=== PATIENT | female | born 1970 | race Hispanic/Latino ===

== ENCOUNTER 2019-12-26 04:54 | Inpatient (IN) | payer OTHER ==
[~2019-12-26] VITALS: Ht 152.4 cm; Wt 71.2 kg
[2019-12-26 05:05] LABS: ABG BASE EXCESS -2.9 mmol/L (-2.0-3.0); ABG HCO3 23.3 mmol/L (21.0-28.0); ABG OXYGEN SATURATION 98.5 % (95.0-99.0); ABG PCO2 46 mmHg (32-45)
[2019-12-26] MEDS ORDERED: ALBUTEROL INHALER 90MCG/INH IH ONE (05:21)
[2019-12-26] MEDS ORDERED: METHYLPREDNISOLONE SOD SUCC 125MG/2ML VIAL ONE (05:21)
[2019-12-26 05:54] LABS: BASOPHILS % (AUTO) 0.9 % (0.0-5.0); EOSINOPHILS % (AUTO) 5.8 % (0.0-8.0); HEMATOCRIT 37.6 % (36-48); LYMPHOCYTES % (AUTO) 19.5 % (21.0-51.0); MEAN CORPUSCULAR HEMOGLOBIN 21.7 pg (27.0-33.0); MEAN CORPUSCULAR HGB CONC 30.1 g/dL (32.0-36.0); MEAN CORPUSCULAR VOLUME 72.3 fL (79-99); MONOCYTES % (AUTO) 6.8 % (3.0-13.0); NEUTROPHILS % (AUTO) 66.8 % (40.0-77.0); PLATELET COUNT (AUTO) 375 K/uL (130-400); RED CELL DISTRIBUTION WIDTH 17.9 % (11.0-15.5); WHITE BLOOD COUNT (AUTO) 8.6 K/uL (4.8-10.8)
[2019-12-26 06:12] LABS: ALBUMIN 4.1 g/dL (3.5-5.0); BILIRUBIN,TOTAL 0.3 mg/dL (0.2-1.0); CREATININE 0.9 mg/dL (0.5-1.5); POTASSIUM 3.8 mmol/L (3.5-5.1); TOTAL PROTEIN, SERUM 8.7 g/dL (6.0-8.3)
[2019-12-26 06:30] LABS: INR 0.97 (0.85-1.15); PARTIAL THROMBOPLASTIN TIME 28.3 SEC (26.3-35.5); PROTHROMBIN TIME 10.5 SEC (9.6-11.6)
[2019-12-26 06:46] LABS: APPEARANCE,URINE Clear (CLEAR); BILIRUBIN,URINE Negative (NEGATIVE); COLOR,URINE Yellow (YELLOW); GLUCOSE, URINE (UA) Negative (NEGATIVE); KETONES,URINE Negative (NEGATIVE); LEUKOCYTE ESTERASE ,URINE Small (NEGATIVE); NITRATE,URINE Negative (NEGATIVE); OCCULT BLOOD,URINE Negative (NEGATIVE); PH,URINE 5.5 (5.0-8.0); PROTEIN,URINE Negative (NEGATIVE); UROBILINOGEN,URINE 0.2 mg/dL (0.2-1.0)
[2019-12-26 06:51] LABS: HCG,QUAL RESULT NEGATIVE (NEGATIVE)
[2019-12-26 07:12] LABS: BACTERIA,URINE None Seen /HPF (None Seen); RBC,URINE 0-1 /HPF (0-1); WBC,URINE 0-1 /HPF (0-1)
[2019-12-26] MEDS ORDERED: AZITHROMYCIN 500MG+NS 250ML 250 ML IV ONE (07:25)
[2019-12-26] MEDS ORDERED: ALBUTEROL SULFATE/IPRATROPIUM 103/18 MCG/PUFF 14.7 GM INHR IH SCH (07:30)
[2019-12-26] MEDS ORDERED: ENOXAPARIN SODIUM 40 MG/0.4 ML SYRINGE SQ ONE (08:25)
[2019-12-26] MEDS ORDERED: FAMOTIDINE/PF 20 MG/2 ML VIAL IV ONE (08:26)
[2019-12-26 08:49] LABS: LACTATE DEHYDROGENASE 328 U/L (81-234)
[2019-12-26] MEDS ORDERED: METHYLPREDNISOLONE SOD SUCC 40MG/ML 1ML ONE ×2 (08:55→15:22)
[2019-12-26] MEDS: ENOXAPARIN SODIUM 40 MG/0.4 ML SYRINGE SQ SCH (09:00)
[2019-12-26] MEDS ORDERED: ACETAMINOPHEN 325 MG TAB PO PRN (14:45)
[2019-12-26] MEDS ORDERED: ACETAMINOPHEN 325 MG TAB ONE (15:20)
[2019-12-26 17:00] VITALS: BP 130/78
--- NOTE | 2019-12-26 17:00 | NUR ---
ADMISSION RECEIVED PT FROM ER, A&OX3, CALM COOPERATIVE AND DOES NOT APPEAR TO BE IN ANY DISTRESS NOR ANY NEURO DEFICITS PRESENT, PT IS ABLE TO AMBULATE FROM GURNEY TO BED BUT DID HAVE SOME DYSPNEA ON EXERTION THAT RESOLVES AFTER SITTING IN BED, PT DOES HAVE WHEEZING PRESENT, GAIT STEADY AND STRONG WITH STAND BY ASSIST. O2 EXTENSION TUBING PROVIDED, INFORMED PT TO MINIMIZE ACTIVITY TO REDUCE EXACERBATION OF ASTHMA. CALL LIGHT WITHIN REACH.
[2019-12-26] MEDS: TRAMADOL HCL 50 MG TABLET PO PRN (19:55)
[2019-12-26 20:00] VITALS: BP 112/67
[2019-12-26] MEDS: CEFTRIAXONE SODIUM 1 GM IVP SCH (20:56)
[2019-12-26] MEDS: FAMOTIDINE/PF 20 MG/2 ML VIAL IV SCH (20:56)
[2019-12-26] MEDS: ALBUTEROL INHALER 90MCG/INH IH SCH (20:58)
[2019-12-26] MEDS: METHYLPREDNISOLONE SOD SUCC 125MG/2ML VIAL IVP SCH (21:02)
[2019-12-27] VITALS: BP 134/90
[2019-12-27] MEDS: ALBUTEROL INHALER 90MCG/INH IH SCH ×4 (00:16→12:24)
[2019-12-27 04:00] VITALS: BP 129/82
[2019-12-27] MEDS: METHYLPREDNISOLONE SOD SUCC 125MG/2ML VIAL IVP SCH ×2 (04:21→09:26)
[2019-12-27] MEDS: TRAMADOL HCL 50 MG TABLET PO PRN (04:22)
[2019-12-27 07:00] VITALS: BP 128/73
[2019-12-27] MEDS: CEFTRIAXONE SODIUM 1 GM IVP SCH (09:27)
[2019-12-27] MEDS: FAMOTIDINE/PF 20 MG/2 ML VIAL IV SCH (09:28)
[2019-12-27] MEDS ORDERED: AZITHROMYCIN 500MG+NS 250ML 250 ML IV SCH (10:45)
[2019-12-27 11:00] VITALS: BP 124/78
[2019-12-27] MEDS: ENOXAPARIN SODIUM 40 MG/0.4 ML SYRINGE SQ SCH (11:35)
[2019-12-27 12:52] LABS: RAPID PLASMA REAGIN NONREACTIVE (NONREACTIVE)
[2019-12-27] MEDS ORDERED: DOXY100C2 PO (13:56)
[2019-12-27] MEDS ORDERED: PRED20TA3 PO (13:56)
--- NOTE | 2019-12-27 16:00 | NUR ---
DC INSTRUCTIONS DC HOME INSTRUCTIONS GIVEN TO PT, ACKNOWLEDGED ALL INFORMATION, ALL QUESTIONS ANSWERED. AWARE AND ACKNOWLEDGED PRESCRIPTIONS WERE SENT TO PHARMACY, AWARE NEEDS PCP F/U IN 3-5 DAYS. PT AWAKE, ALERT, AND ORIENTED. PT MADE AWARE TO RETURN TO ER IF NEEDED, DIAL 911, OR CALL PCP. AWAITING FOR HOME TRANSPORTATION.
--- NOTE | 2019-12-30 08:49 | NUR ---
MATTHEW PLAN PATIENT IN COVID ISOLATION UNIT. NOT ABLE TO VISIT. PATIENT DISCHARGED NO NEEDS VERBALIZED BY NURSING STAFF. Addendum: 12/30/19 at 0850 by MIGUEL ANGEL FRENCH RN CM Amended: Links added.
== END 2019-12-27 17:30 | disposition home or self-care (01) | DRG 196 ==
LOC: EDH 04:54 → EDHIP 04:55 → 2DH 17:00
PROVIDERS: ADMIT Internal Medicine; ATTEND Internal Medicine
DX: J84.9 Interstitial pulmonary disease, unspecified (principal); J96.01 Acute respiratory failure with hypoxia; J96.02 Acute respiratory failure with hypercapnia; J45.31 Mild persistent asthma with (acute) exacerbation; E87.2 Acidosis; Z20.828 Contact with and (suspected) exposure to other viral communicable diseases; Z87.891 Personal history of nicotine dependence
CPT/HCPCS: 36415; 36600; 71045; 80053; 81001; 81025; 82550; 82803; 83605; 83615; 83690; 83880; 84145; 84484; 84702; 85025; 85378; 85610; 85730; 86592; 86701; 86738; 87040; 87390; 87449; 87486; 87581; 87633; 87798; 87804; 93005; G0378; J0456; J0696; J1650; J2920; J2930; J3490